=== PATIENT | female | born 1995 | race Two or more races ===

== ENCOUNTER 2023-02-23 16:44 | Emergency (ER) | payer BC ==
[~2023-02-23] VITALS: Ht 177.8 cm; Wt 109.1 kg
[2023-02-23 16:50] VITALS: TEMP 98.5
[2023-02-23 17:31] LABS: APPEARANCE,URINE HAZY (CLEAR); BILIRUBIN,URINE NEGATIVE (NEGATIVE); COLOR,URINE COLORLESS (YELLOW); GLUCOSE, URINE (UA) NEGATIVE (NEGATIVE); KETONES,URINE NEGATIVE (NEGATIVE); LEUKOCYTE ESTERASE ,URINE NEGATIVE (NEGATIVE); NITRATE,URINE NEGATIVE (NEGATIVE); OCCULT BLOOD,URINE LARGE (NEGATIVE); PH,URINE 5.5 (5.0-8.0); PROTEIN,URINE NEGATIVE (NEGATIVE); SPECIFIC GRAVITIY, URINE 1.008 (1.003-1.030); UROBILINOGEN,URINE <=1.0 mg/dL (<=1.0)
[2023-02-23 17:58] LABS: BACTERIA,URINE Rare /HPF (None Seen); RBC,URINE 26-50 /HPF (0-2); SQUAMOUS EPITHELIAL CELL,UR Moderate /LPF (None Seen); WBC,URINE 0-2 /HPF (0-5)
[2023-02-23 20:59] VITALS: BP 109/59; PULSE 70; RESP 18
[2023-02-23] MEDS ORDERED: SULFAMETHOX/TRIMETH DS 800-160 MG/TABLET PO ONE (21:00)
[2023-02-23] MEDS ORDERED: SULF-261 PO (21:26)
[2023-02-23] MEDS ORDERED: PHEN-674 PO (21:27)
== END 2023-02-23 21:42 | disposition home or self-care (01) ==
LOC: EMS 16:47
DX: N30.90 Cystitis, unspecified without hematuria (principal); Z88.8 Allergy status to other drugs, medicaments and biological substances
CPT/HCPCS: 74176; 81001; 84703; 99284; Z7502; Z7610

== ENCOUNTER 2023-02-26 13:43 | Emergency (ER) | payer BC ==
[~2023-02-26] VITALS: Ht 177.8 cm; Wt 109.1 kg
[~2023-02-26 13:43] MED LIST: PHEN-674 PO; SULF-261 PO
[2023-02-26 13:52] VITALS: TEMP 98.5
[2023-02-26 14:30] VITALS: BP 120/80; PULSE 90; RESP 12
[2023-02-26] MEDS ORDERED: BACTDSB PO (14:37)
[2023-02-26] MEDS ORDERED: PHEN-846 PO (14:37)
== END 2023-02-26 14:47 | disposition home or self-care (01) ==
LOC: EMS 13:49
DX: N30.90 Cystitis, unspecified without hematuria (principal); Z76.0 Encounter for issue of repeat prescription; Z88.8 Allergy status to other drugs, medicaments and biological substances
CPT/HCPCS: 99281; Z7502

== ENCOUNTER 2024-09-06 21:45 | Emergency (ER) | payer BC ==
[~2024-09-06] VITALS: Ht 177.8 cm; Wt 106.8 kg
[~2024-09-06 21:45] MED LIST changes: +BACTDSB PO; +PHEN-846 PO
[2024-09-06 21:51] VITALS: TEMP 97.9
[2024-09-07 00:45] VITALS: BP 124/68; PULSE 68; RESP 18; O2SAT 98
== END 2024-09-07 01:09 | disposition home or self-care (01) ==
LOC: EMS 21:45
DX: F41.0 Panic disorder [episodic paroxysmal anxiety] (principal); F12.90 Cannabis use, unspecified, uncomplicated; Z88.0 Allergy status to penicillin; Z87.440 Personal history of urinary (tract) infections
CPT/HCPCS: 93005; 99283

== ENCOUNTER 2024-11-07 18:35 | Emergency (ER) | payer BC ==
[~2024-11-07] VITALS: Ht 177.8 cm; Wt 109.1 kg
[2024-11-07 18:46] VITALS: BP 125/72; PULSE 67; RESP 18; TEMP 98.1; O2SAT 99
[2024-11-07] MEDS: PredniSONE 20 MG TABLET PO ONE (19:53)
[2024-11-07] MEDS: DiphenhydrAMINE HCL 25 MG CAPSULE PO ONE (19:53)
[2024-11-07] MEDS ORDERED: DIPH50CA37 PO (20:19)
[2024-11-07] MEDS ORDERED: PRED-554 PO (20:19)
== END 2024-11-07 20:23 | disposition home or self-care (01) ==
LOC: EMS 18:35
DX: L50.0 Allergic urticaria (principal); F12.90 Cannabis use, unspecified, uncomplicated; Z88.0 Allergy status to penicillin; Z79.899 Other long term (current) drug therapy
CPT/HCPCS: 99283; J7512